=== PATIENT | female | born 1990 | race Hispanic/Latino ===

== ENCOUNTER 2018-09-21 13:24 | Outpatient (CLI) | payer OTHER ==
--- NOTE | 2018-09-21 16:14 | ULT ---
ULTRASOUND OBSTETRICAL COMPLETE: 09/21/2018 HISTORY: A 28-year-old female for Z34.82, encounter for supervision of other normal , sec ond trimester. FINDINGS: number: [place]. lie: Cephalic. Maternal cervix: 3.5 cm in length and closed. Placenta: Anterofundal. No placenta previa. Amniotic fluid volume: CESIA = 11.5 cm. heart rate: 138 bpm. The following anatomy is visualized, with no evidence of anomalies: Head, lateral ventricles, cerebellum, nose and lips, spine, upper limbs, lower limbs, four chamber he art, umbilical cord, cord insertion, stomach, kidneys, and bladder. biometry: Head circumference (HC): 16.8 cm 19w 4d Biparietal diameter (BPD): 4.4 cm 19w 3d Abdominal circumference (AC): 13.2 cm 18w 5d Femur length (FL): 2.9 cm 19w 0d Average ultrasound age (AUA): 19w 2d Estimated date of delivery (GIO): 02/13/2019 Last menstrual period (LMP): 05/06/2018 Gestational age by LMP: 19w 5d Estimated weight (EFW): 262 g, +/- 38 g (0 lb 9 oz, +/- 1 oz). IMPRESSION: 1. Live second trimester intrauterine gestation. 2. Estimated gestational age of 19 weeks, 2 days. 3. Cephalic lie. 4. No anatomical abnormalities. jn [] POS: TPC
== END 2018-09-21 13:25 | disposition home or self-care (01) ==
LOC: BICULT 13:24
PROVIDERS: ATTEND Family Medicine
DX: Z34.82 Encounter for supervision of other normal pregnancy, second trimester (principal); Z3A.19 19 weeks gestation of pregnancy
CPT/HCPCS: 76805

== ENCOUNTER 2019-01-08 00:22 | Day surgery (SDC) | payer OTHER ==
[2019-01-08 02:31] VITALS: BP 105/69; TEMP 98.3; BMI 27.4
--- NOTE | 2019-01-08 02:39 | PDOC.LDHP ---
Labor and Delivery H&P Chief complaint: contractions HPI: 28 yo @ 35.5 presents for lower pelvic pressure and one painful contraction. Pt reports painful contraction occurred this afternoon w/o recurrence. No LOF, vaginal bleeding, no dischage. Pt reports pos movement. Currently denies contractions. Current gestational age (weeks): 35 (5) Grav: 3 Para: 2 Current complications: none Current medications: pre- vitamins Previous surgical history: none Allergies/Adverse Reactions: Allergies Allergy/AdvReac Type Severity Reaction Status Date / Time No Known Allergies Allergy Verified 01/08/19 02:24 Social history: none - Physical Exam Vital signs reviewed and normal: yes General: NAD Heart: RRR Lungs: CTAB Abdomen: NTTP Extremeties: no edema FHT: category 1 [place] contractions every: 5-10 min then cessation - Vaginal Exam cm dilated: 0 (0.5) Effacement: 50% Station: -2 - OB Labs Blood type: unknown RH: unknown Antibody Screen: unknown HIV: unknown RPR: unknown HEPSAg: unknown 1 hour GCT: unknown GBS: unknown - Plan Plan: observation in L&D -: 1) contractions: - cervical check ./-2 - po hydrate cont EFM - recheck cervix in 2 hours, ok for DC to home if no change and no contractions Addendum - Attending - Attending Attestation Date/Time: 01/08/19 0824 I personally evaluated the patient and discussed the management with Dr. Cornelius. I agree with the History, Examination, Assessment and Plan documented above.
[2019-01-08 03:19] LABS: Bilirubin Negative (Negative); Blood, Urine Negative (Negative); Clarity CLOUDY (Clear); Glucose, Urine (Dipstick) Negative (Negative); Leukocyte Negative (Negative); Nitrite Negative (Negative); Protein, Urine (Dipstick) Negative (Neg-Trace); Specific Gravity, Urine 1.006 (1.002-1.036)
[2019-01-08 03:20] LABS: Bacteria/HPF None Seen HPF (None Seen); Hyaline Casts/LPF 0-3 HYALINE CAST LPF (0-3 Hyaline); Pathc Cast-AUWi Flag 0.27 (0-2.49); RBC/HPF 0-3 HPF (0-3); Squamous Epithelial 0-3 HPF (0-3); WBC/HPF 0-3 HPF (0-3)
[2019-01-08 03:21] LABS: Urine Culture Reflex No No
--- NOTE | 2019-01-08 05:37 | PDOC.EVN ---
Event Note - Event Note Event Note: Contractions down and returned q3-5 with some discomfort. Pt has made no cervical change in 4 hours. Return precautions discussed. Pt agreeable, will DC to home. To f/u with PCP next week.
== END 2019-01-08 05:43 | disposition home or self-care (01) ==
LOC: LAB 00:22 → L&D/OP 05:43
PROVIDERS: ATTEND Family Medicine
DX: O47.03 False labor before 37 completed weeks of gestation, third trimester (principal); Z3A.35 35 weeks gestation of pregnancy
CPT/HCPCS: 81001; 99284